=== PATIENT | female | born 1950 | race Caucasian/White ===

== ENCOUNTER 2016-08-16 08:27 | Day surgery (SDC) | payer BC, MEDICAID ==
[~2016-08-16] VITALS: Ht 167.6 cm; Wt 73.1 kg
[~2016-08-16 08:27] MED LIST: LISI10TA2 PO; LISI20TA11 PO; METO-448 PO; ZOC10 PO
[2016-08-16 09:31] VITALS: Ht 167.6 cm; Wt 73.1 kg
[2016-08-16] MEDS ORDERED: GABA100C14 PO (09:52)
[2016-08-16] MEDS ORDERED: OXYB10TA PO (09:52)
[2016-08-16] MEDS ORDERED: CLON-379 PO (09:52)
[2016-08-16] MEDS ORDERED: METO-448 PO (09:52)
[2016-08-16] MEDS ORDERED: ESCI5SOL PO (09:52)
[2016-08-16] MEDS ORDERED: HYDR-3671 PO (09:52)
[2016-08-16] MEDS ORDERED: POTA8CAP PO (09:52)
[2016-08-16] MEDS ORDERED: LOSA1TAB20 PO (09:52)
[2016-08-16] MEDS ORDERED: DONE5TAB7 PO (09:52)
[2016-08-16 10:00] VITALS: BP 185/79; PULSE 67; RESP 13
[2016-08-16] MEDS ORDERED: MIDAZOLAM 1 MG/ML 2 ML INJ ONE ×2 (10:36→10:37)
[2016-08-16] MEDS ORDERED: FENTAnyl 50 MCG/ML VIAL ONE (10:36)
[2016-08-16 10:50] VITALS: BP 159/86; PULSE 54; RESP 12
--- NOTE | 2016-08-16 14:03 | GILP ---
DATE OF PROCEDURE: PROCEDURE PERFORMED: Colonoscopy with polypectomy. INDICATION: A 66-year-old female undergoing this procedure for surveillance of colon polyp. She crowe d polyp, multiple removed during the last endoscopy and also she had a colonic resection for the can cer of the colon. INFORMED CONSENT: The risk of the procedure, related and unrelated complications, anesthetic risks, sedative risks, alternatives discussed and informed consent was obtained. DESCRIPTION OF PROCEDURE: The patient was brought to the GI lab, sedated with Versed 3 mg, fentanyl 75 mg, and after optimal sedation, scope was passed with much ease into the rectum. Digital examin ation was done which was normal. Scope was advanced slowly through the descending colon all the way into cecum. Appendiceal orifice identified. IC valve identified. While coming out, mucosa thorou ghly inspected. There was a polyp at 60 cm, successfully removed by cold snare technique, but the p olyp could not be retrieved. The rest of the colon appeared normal. The patient's anastomotic site was at 15 cm, there was a perianastomotic diverticula and also a suture material identified with th e granulation tissue surrounding the suture material in the form of inflammatory diminutive polyp. The rest of the colon was normal. Small hemorrhoids identified. IMPRESSION: 1. Polyp at 60 cm, successfully removed by cold snare technique. 2. Normal anastomosis with perianastomotic diverticulum. 3. Suture material at the anastomotic site with granulation tissue. 4. Small hemorrhoid. 5. Negative all the way into the cecum. 6. Clarity and cleanliness was good. PLAN: Review the histopathology of the polyp we will do next colonoscopy after 2 years. Dictated By: REAL POWER/ANDREA Conf#: [id number] DID#: [id number] CC: PA VELOZ MD;*EndCC*
== END 2016-08-16 14:25 | disposition home or self-care (01) ==
LOC: GIL 08:27
PROVIDERS: ATTEND Internal Medicine Gastroenterology
DX: Z85.038 Personal history of other malignant neoplasm of large intestine (principal); I10 Essential (primary) hypertension; Z79.82 Long term (current) use of aspirin; K63.5 Polyp of colon; K64.9 Unspecified hemorrhoids
CPT/HCPCS: 45385; J2250; J3010; Z7610

== ENCOUNTER 2017-08-01 08:36 | Day surgery (SDC) | END 2017-08-01 13:11 | disposition home or self-care (01) ==